=== PATIENT | male | born 1995 | race Caucasian/White ===

== ENCOUNTER 2022-01-21 15:43 | Outpatient (CLI) | payer BC, SELFPAY ==
[2022-01-21 17:06] LABS: Chloride* 103 mmol/L (96-114)
[2022-01-21 17:07] LABS: Albumin* 4.7 g/dL (3.3-5.0); Potassium* 4.3 mmol/L (3.6-5.1); Sodium* 137 mmol/L (135-149)
[2022-01-21 17:09] LABS: Carbon Dioxide* 25 mmol/L (20-32); Cholesterol* 160 mg/dL (90-199)
[2022-01-21 17:10] LABS: Alanine Aminotransferase* 25 U/L (4-50); Alkaline Phosphatase* 102 U/L (40-150); Aspartate Amino Transferase* 24 U/L (12-35); Bilirubin Total* 0.4 mg/dL (0.1-1.5); Blood Urea Nitrogen* 19 mg/dL (5-24); Calcium* 9.1 mg/dL (8.4-10.6); Estimated Glomerular Filt Rate 108 ml/min; Glucose* 87 mg/dL (60-115); Total Protein* 7.5 g/dL (6.0-8.3); Triglycerides* 168 mg/dL (40-149)
[2022-01-21 17:11] LABS: HDL Cholesterol* 46 mg/dL (>=40); LDL Cholesterol Calculated 80 mg/dL (<100)
== END 2022-01-21 15:44 | disposition home or self-care (01) ==
PROVIDERS: PCP Family Medicine; Visit Provider Family Medicine
DX: I10 Essential (primary) hypertension (principal); E66.9 Obesity, unspecified; Z13.6 Encounter for screening for cardiovascular disorders; Z79.899 Other long term (current) drug therapy
CPT/HCPCS: 80053; 80061

== ENCOUNTER 2022-10-01 06:44 | Outpatient (CLI) | payer BC, SELFPAY ==
--- NOTE | 2022-10-01 06:44 | W.ANESCHARGE ---
Anesthesia Charges Start Date/Time Anesthesia Start Date: 10/01/22 Anesthesia Start Time: 07:44 Stop Date/Time Anesthesia Stop Date: 10/01/22 Anesthesia Stop Time: 08:16
--- NOTE | 2022-10-01 06:44 | PM.ANHP ---
HPI - Pre-Anesthesia History of Present Illness Time Seen by Provider: 07:25 Date Seen: 10/01/22 Date of service: 10/01/22 Reason for visit: colonoscopy Narrative HPI: History of polyp. here for 5 year follow up Review of Systems Status of ROS Reports: 6 or more systems reviewed and unremarkable except as noted in History and below [facility] Medical History (Updated 01/21/22 @ 16:04 by Morena Billy MD) Irritable bowel syndrome with diarrhea ?K58.0 - Irritable bowel syndrome with diarrhea (ICD-10) Obesity (BMI 30.0-34.9) ?E66.9 - Obesity, unspecified (ICD-10) Hypertension with goal blood pressure less than 130/80 ?I10 - Essential (primary) hypertension (ICD-10) Surgical History (Updated 01/20/22 @ 09:29 by Lindsey Cash) History of colonoscopy (09/19/17) ?Z98.890 - Other specified postprocedural states (ICD-10) History of adenoidectomy ?Z90.89 - Acquired absence of other organs (ICD-10) Family History (Updated 01/20/22 @ 15:57 by Morena Billy MD) Father Bipolar disorder Paternal Grandmother Breast cancer, Onset Age: 30 Coronary artery disease Melanoma Maternal Grandmother Coronary artery disease Kidney disease Myocardial infarction, Onset Age: 60 Paternal Grandfather Hx of CABG, Onset Age: 60 Paternal Grandfather Hx of CABG, Onset Age: 60 Sister Migraine Social History (Updated 01/21/22 @ 16:03 by Morena Billy MD) Narrative: Engaged, Constuction worker, 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, nonsmoker, 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 Smoking Status: Never smoker Meds Home Medications and Allergies Home Medications Medication Instructions Recorded Confirmed Type hyoscyamine sulfate 0.125 mg tablet 0.125 mg PO PRN 01/21/22 01/21/22 History Allergies Allergy/AdvReac Type Severity Reaction Status Date / Time No Known Drug Allergies Allergy Verified 01/21/22 15:20 Exam Const Documenting provider has reviewed patient's vital signs: yes Common normals: no apparent distress, oriented x3, healthy appearing, alert and well nourished General appearance: cooperative and comfortable Orientation/consciousness: Yes awake HENMT Common normals: normocephalic Head and scalp: normocephalic Neck & C-Spine Common normals: full ROM Chest Chest: symmetrical chest wall rise Resp Common normals: normal respiratory effort, no retractions, no use of accessory muscles and clear to auscultation bilaterally Auscultation: clear to auscultation bilaterally Cardio Common normals: regular rate, regular rhythm, S1 normal heart sound, S2 normal heart sound and no murmurs Rate: regular rate Rhythm: regular rhythm Heart sounds: S1 normal and S2 normal Neuro Common normals: oriented x3 Sensorium/orientation: awake and alert Assessment and Plan Assessment and plan (1) Serrated adenoma of colon: Status: Acute Plan ok to proceed with sedation for colonoscopy
--- NOTE | 2022-10-01 08:18 | W.ANESCHARGE ---
Anesthesia Charges Start Date/Time Anesthesia Start Date: 10/01/22 Anesthesia Start Time: 07:44 Stop Date/Time Anesthesia Stop Date: 10/01/22 Anesthesia Stop Time: 08:16
== END 2022-10-01 06:45 | disposition home or self-care (01) ==
LOC: OP CLINIC 06:45
PROVIDERS: PCP Family Medicine; Visit Provider Internal Medicine
DX: Z12.11 Encounter for screening for malignant neoplasm of colon (principal); Z86.010 Personal history of colon polyps
CPT/HCPCS: 45378; 811; 812; J2704

== ENCOUNTER 2023-02-16 16:12 | Outpatient (CLI) | payer BC, SELFPAY | END 2023-02-16 16:13 | disposition home or self-care (01) | PROVIDERS: PCP Family Medicine; Visit Provider Family Medicine | DX: I10 Essential (primary) hypertension (principal); Z13.220 Encounter for screening for lipoid disorders | CPT/HCPCS: 80053; 80061 ==

== ENCOUNTER 2024-02-20 07:48 | Outpatient (CLI) | payer BC, SELFPAY | END 2024-02-20 07:49 | disposition home or self-care (01) | PROVIDERS: PCP Family Medicine; Referring Provider Family Medicine; Visit Provider Family Medicine | DX: I10 Essential (primary) hypertension (principal); R73.01 Impaired fasting glucose; E78.5 Hyperlipidemia, unspecified; Z13.29 Encounter for screening for other suspected endocrine disorder | CPT/HCPCS: 80053; 80061; 84443 ==

== ENCOUNTER 2024-08-05 17:49 | Emergency (ER) | payer BC, SELFPAY ==
--- OUTSIDE RECORDS SUMMARY | 2024-08-05 17:51 | XMS_ITS | Clinical Summary ---
Author Organization [facility] Address [address], [place] [address] Care Team Providers Care Channeler Insole Name Role Phone Unavailable Primary Care Provider Unavailabl e Source Comments You are receiving this document as you are listed as the primary care provider,follow-up provider, or the patient has been referred to you for consultation.This is in compliance with the Medicare and[facility] EHR Incentive Program,which states Providers who transition their patient to another setting of careor provider of care or refers their patient to another provider of care shouldprovide summary care record for each transition of care or referral. [facility] Allerg[facility] No known active allergies Medications lisinopril (ZESTRIL) 20 MG tablet Take 20 mg by mouth daily. Active omeprazole (PRILOSEC) 20 MG capsule Take 1 Cap by mouth daily. Take 1 hour before a meal. 30 Cap 11 8 Active hyoscyamine (LEVSIN/SL) 0.125 MG sublingual tabletIndications :Irritable bowel syndrome with both constipation and diarrhea Take 1-2 Tablets by mouth every 4 hours as needed. 40 Tablet 3 8 Active busPIRone (BUSPAR) 10 MG tabletIndications :Irritable bowel syndrome with both constipation and diarrhea Take 2 Tablets by mouth two times a day. 360 Tablet 3 0 Active dicyclomine (BENTYL) 10 MG capsule Take 1-2 Capsules by mouth 4 times daily as needed. 120 Capsule 3 0 Active Active Problems Problem Noted Date Diagnosed Date Irritable bowel syndrome wit h both constipation and diarrhea 10/25/2017 Adenomatous polyp of colon 09/22/2017 Overview (09/22/2017): Next colonoscopy 09/2022 with propofol Social History Tobacco Use Types Packs/Day Years Used Date Smoking Tobacco: Never Smokeless Tobacco: Never Alcohol Use Standard Drinks/Week Comments Yes 2 (1 standard drink = 0.6 oz pur e alcohol) Sex and Gender Information Value Date Recorded Sex Assigned at Not on file Legal Sex Male 12:17 PM CDT Gender Identity Not on file Sexual Orientation Not on file Last Filed Vital Signs Vital Sign Reading Time Taken Comments Blood Pressure 135/93 04/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 Pulse 94 04/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 Temperature 36.6 C (97.9 F) 09/19/2017 9:24 AM CDT Respiratory Rate 18 04/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 Oxygen Saturation 98% 09/19/2017 10:45 AM CDT Inhaled Oxygen Concentration - - Weight 142.4 kg (314 lb) 04/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 Height 203.2 cm (6' 8) 04/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 Body Mass Index 34.49 04/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 Plan of Treatment Health Maintenance Due Date Last Done Comments Hep C Screening (Preventive Services) 1997 HIV Screening (Preventive Services) 2013 Adult Preventive Visit 05/13/2015 DTaP/Tdap/Td Vaccine (1 - Tdap) 2016 HepB Vaccine (1) 2016 Colonoscopy 09/19/2022 09/19/2017 COVID-19 Vaccine (1 - 2023-2 5 season) 2023 Influenza Vaccine (Season Ended) 2024 Zoster/Shingles Vaccine (1 of 2) 05/13/2047 HPV Vaccine Aged Out No longer eligi ble based on patient's age to complete this topic HepA Vaccine Aged Out No longer eligi ble based on patient's age to complete this topic Hib Vaccine Aged Out No longer eligi ble based on patient's age to complete this topic IPV (Polio) Vaccine Aged Out No longe r eligible based on patient's age to complete this topic MCV4 Vaccine Aged Out No longer eligi ble based on patient's age to complete this topic Meningococcal B Vaccine Aged Out No l onger eligible based on patient's age to complete this topic Pneumococcal Vaccine Aged Out No long er eligible based on patient's age to complete this topic Procedures Procedure Name Priority Date/Time Associated Diagnosis Comments ENDOSCOPY, COLON, SCREENING/DIAGNOSTI C Routine 09/19/2017 9:59 AM CDT Chronic diarrhea from Last 3 Months or Most Recently Relevant to Health Maintenance Results * Endoscopy, colon, diagnostic (09/19/2017 9:59 AM CDT) Anatomical Region Laterality Modality Other 09/19/2017 9:59 AM CDT Narrative 09/19/2017 9:59 AM CDT Patient Name: Dorian Steen Procedure Date: 09/19/2017 9:59 AM Date of : 1995 Age: 22 Gender: Male Note Status: Finalized Attending MD: Shorty Crisostomo MD Procedure: Colonoscopy Indications: Chronic diarrhea Providers: Shorty Crisostomo MD, Robbie Villatoro RN Referring MD: Dorian Oropeza MD Medicines: Propofol per Anesthesia Complications: No immediate complications. Estimated blood loss: Minimal. Procedure: After I obtained informed consent, the scope was passed under direct vision. Throughout the procedure, the patient's blood pressure, pulse, and oxygen saturations were monitored continuously. The [id number] was introduced through the anus and advanced to the cecum, identified by appendiceal orifice and ileocecal valve. The colonoscopy was performed without difficulty. The patient tolerated the procedure well. The quality of the bowel preparation was good. Findings: The perianal and digital rectal examinations were normal. A 4 mm polyp was found in the hepatic flexure. The polyp was sessile. The polyp was removed with a cold biopsy forceps. Resection and retrieval were complete. Estimated blood loss was minimal. The colon (entire examined portion) appeared normal. Biopsies for histology were taken with a cold forceps from the right colon, left colon and rectum for evaluation of microscopic colitis. Estimated blood loss was minimal. Impression: - One 4 mm polyp at the hepatic flexure, removed with a cold biopsy forceps. Resected and retrieved. - The entire examined colon is normal. Biopsied. Recommendation: - Await pathology results. - Repeat colonoscopy in 5 years for surveillance based on pathology results. Procedure Code(s): --- Professional --- 00680, Colonoscopy, flexible; with biopsy, single or multiple Diagnosis Code(s): --- Professional --- D12.3, Benign neoplasm of transverse colon (hepatic flexure or splenic flexure) K52.9, Noninfective gastroenteritis and colitis, unspecified CPT copyright 2016 [employer]. All rights reserved. The codes documented in this report are preliminary and upon needle board repairer review may be revised to meet current compliance requirements. Shorty Crisostomo MD 09/19/2017 10:54:06 AM This document has been electronically signed. Number of Addenda: 0 Note Initiated On: 09/19/2017 9:59 AM Endoscopy Report Procedure Note Shorty Crisostomo MD - 09/19/2017 Patient Name: Dorian Steen Procedure Date: 09/19/2017 9:59 AM Date of : 1995 Age: 22 Gender: Male Note Status: Finalized Attending MD: Shorty Crisostomo MD Procedure: Colonoscopy Indications: Chronic diarrhea Providers: Shorty Crisostomo MD, Robbie Villatoro RN Referring MD: Dorian Oropeza MD Medicines: Propofol per Anesthesia Complications: No immediate complications. Estimated blood loss: Minimal. Procedure: After I obtained informed consent, the scope was passed under direct vision. Throughout the procedure, the patient's blood pressure, pulse, and oxygen saturations were monitored continuously. The [id number] was introduced through the anus and advanced to the cecum, identified by appendiceal orifice and ileocecal valve. The colonoscopy was performed without difficulty. The patient tolerated the procedure well. The quality of the bowel preparation was good. Findings: The perianal and digital rectal examinations were normal. A 4 mm polyp was found in the hepatic flexure. The polyp was sessile. The polyp was removed with a cold biopsy forceps. Resection and retrieval were complete. Estimated blood loss was minimal. The colon (entire examined portion) appeared normal. Biopsies for histology were taken with a cold forceps from the right colon, left colon and rectum for evaluation of microscopic colitis. Estimated blood loss was minimal. Impression: - One 4 mm polyp at the hepatic flexure, removed with a cold biopsy forceps. Resected and retrieved. - The entire examined colon is normal. Biopsied. Recommendation: - Await pathology results. - Repeat colonoscopy in 5 years for surveillance based on pathology results. Procedure Code(s): --- Professional --- 10459, Colonoscopy, flexible; with biopsy, single or multiple Diagnosis Code(s): --- Professional --- D12.3, Benign neoplasm of transverse colon (hepatic flexure or splenic flexure) K52.9, Noninfective gastroenteritis and colitis, unspecified CPT copyright 2016 [employer]. All rights reserved. The codes documented in this report are preliminary and upon needle board repairer review may be revised to meet current compliance requirements. Shorty Crisostomo MD 09/19/2017 10:54:06 AM This document has been electronically signed. Number of Addenda: 0 Note Initiated On: 09/19/2017 9:59 AM Endoscopy Report Dorian Oropeza MD ET GI PROCEDURE ORDERABLES F inal Result from Last 3 Months or Most Recently Relevant to Health Maintenance Insurance [facility] [place] [address]
--- OUTSIDE RECORDS SUMMARY | 2024-08-05 17:51 | XMS_ITS | Clinical Summary ---
Author Organization [facility] Address [address] [place] [id number] Care Team Providers Care Pick Pulling Machine Tender Name Role Phone Morena Billy MD Primary Care Provider + Allergies No known active allergies Medications fluticasone, 50 mcg per actuation, nasal (FLONASE) 50 mcg/actuation nasal spray Inhale 1 Sterling into both nostrils once daily. 1 Bottle 0 06/21/2011 Active Active Problems No known active problems Family History Medical History Relation Name Comments No Known Problems Father Positive s moking. No Known Problems Sister 1 No Known Problems Sister 2 Relation Name Status Comments Father Alive Sister 1 Alive Sister 2 Alive Social History Tobacco Use Types Packs/Day Years Used Date Smoking Tobacco: Passive Smo ke Exposure - Never Smoker Smokeless Tobacco: Never Tobacco Cessation:Counseling Given: Yes Comments:His father smokes. 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 Gender Identity Not on file Sexual Orientation Not on file Obstetrics History Last Filed Vital Signs Vital Sign Reading Time Taken Comments Blood Pressure 146/88 07/14/2020 8:18 PM CDT Pulse 100 07/14/2020 8:26 PM CDT Temperature 36.8 C (98.3 F) 07/14/2020 8:15 PM CDT Respiratory Rate 14 07/14/2020 8:15 PM CDT Oxygen Saturation 99% 07/14/2020 8:26 PM CDT Inhaled Oxygen Concentration - - Weight 137.4 kg (303 lb) 07/14/2020 8:16 PM CDT Height 203.2 cm (6' 8) 07/14/2020 8:16 PM CDT Body Mass Index 33.29 07/14/2020 8:16 PM CDT Plan of Treatment Health Maintenance Due Date Last Done Comments Tdap 2008 Depression screening for age 12+ 2009 HIV for age 15-65 2012 BMI (ht and wt on same day) for age 18+ 05/13/2015 Hepatitis C screening for ag e 18-79 05/13/2015 Hepatitis B series for 19+ ( 1 of 3 - 19+ 3-dose series) 2016 Tetanus booster 2017 COVID-19 vaccine series (2023- season) 2023 Influenza Vaccine (Season Ended) 2024 Pneumococcal series for age 6-49 Aged Out No longer eligible based on patient's age to complete this topic Insurance [facility] Care Teams Pick Pulling Machine Tender Relationship Specialty Start Date End Date Morena Billy MD [address] [place] [address] PCP - General Family Practice 05/27/17
[2024-08-05 18:11] VITALS: BP 146/90; PULSE 96; RESP 18; TEMP 36.6; O2SAT 97; BMI 37.2
--- NOTE | 2024-08-05 18:34 | ED_ITS ---
HPI - Wound/Laceration General Chief Complaint: Laceration/Wound Stated Complaint: Left pointer finger laceration Time Seen by Provider: 08/05/24 17:50 History of Present Illness HPI narrative: This 29-year-old male comes in with a laceration to the tip of his left index finger. He was using a grinding wheel prior to arrival and the small wheal on and of a Dremel like tool accidentally cut into the tip of his left index finger. He did cleanse the wound with soapy water. He thinks that his tetanus is up-to-date and it was checked here and in fact that is the case. Related Data Previous Rx's ?Medication ?Instructions ?Recorded dicyclomine 10 mg capsule 10 - 20 mg (1 - 2 x 10 mg) P O BID 02/28/24 PRN abdominal pain #90 caps lisinopril 20 mg tablet 20 mg PO DAILY #90 tabs 02/11 10/04 Allergies Allergy/AdvReac Type Severity Reaction Status Date / Time No Known Drug Allergies Allergy Verified 08/05/24 18:11 Review of Systems 2 Status of ROS: Reports: 10 or more systems reviewed and unremarkable except as noted in History and below Narrative: Constitutional: No fevers, no weight gain or loss. Eyes: No discharge. No vision changes. HENT: No congestion, no sore throat, no ear pain. Cardiovascular: No chest pain, no palpitations. Respiratory: No shortness of breath, no wheezes, no cough. Gastrointestinal: No abdominal pain, no vomiting, no diarrhea. Genitourinary: No dysuria, no hematuria. Musculoskeletal: Normal range of motion. Skin: No rashes, no pruritis. Neurological: No dizziness, weakness, sensory change, speech change. Endo/Heme/Allergies: No bruising or bleeding. No polydipsia. Pysch: no suicidality, no anxiety, no insomnia. All other systems reviewed and are negative. [facility] Medical History (Updated 08/05/24 @ 18:37 by Ahmet Cisneros MD) Moderate hearing loss (~2022) ?H91.90 - Unspecified hearing loss, unspecified ear (ICD-10) Tinnitus, bilateral ?H93.13 - Tinnitus, bilateral (ICD-10) Hypertension, essential ?I10 - Essential (primary) hypertension (ICD-10) Serrated adenoma of colon (~09/2017) ?D12.6 - Benign neoplasm of colon, unspecified (ICD-10) Irritable bowel syndrome with diarrhea ?K58.0 - Irritable bowel syndrome with diarrhea (ICD-10) Obesity (BMI 30.0-34.9) ?E66.9 - Obesity, unspecified (ICD-10) Surgical History (Updated 01/20/22 @ 09:29 by CharityIvett Cash) History of colonoscopy (09/19/17) ?Z98.890 - Other specified postprocedural states (ICD-10) History of adenoidectomy ?Z90.89 - Acquired absence of other organs (ICD-10) Family History (Updated 01/20/22 @ 15:57 by Morena Billy MD) Father Bipolar disorder Paternal Grandmother Breast cancer, Onset Age: 30 Coronary artery disease Melanoma Maternal Grandmother Coronary artery disease Kidney disease Myocardial infarction, Onset Age: 60 Paternal Grandfather Hx of CABG, Onset Age: 60 Paternal Grandfather Hx of CABG, Onset Age: 60 Sister Migraine Social History (Updated 02/28/24 @ 10:40 by Morena Billy MD) Narrative: , sales agent insurance, 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 nonsmoker, 2 christophe/ week What is your current living situation?: I presently have a place to live Problems where you live: no known problems In the past 12 months, utilities in danger of being shut off: no In past 12 months, lack of transportation kept you from medical appts, meetings, work, or getting things needed for daily living: no In the past 12 mos, have been you worried that your food would run out before you had money to buy more?: never true In the past 12 mos, the food you bought just didn't last and you didn't have money to buy more?: never true Smoking Status: Never smoker How often does anyone, including family, friends and others, physically hurt you : never How often does anyone, including family, friends and others, insult or talk down to you: never How often does anyone, including family, friends and others, threaten you with harm: never How often does anyone, including family, friends and others, scream or curse at you: never Exam Narrative: Exam Narrative: Constitutional: Well-developed, well-nourished, no acute distress. HEENT: Normocephalic, atraumatic. Neck: Normal range of motion. Nontender. Supple. Heart: Intact distal pulses. Lungs: No chest discomfort. No wheezes, rhonchi, or rales. Abdomen: Nontender. Back: Normal range of motion. Extremities: Normal range of motion. Left index finger has a 1 cm laceration over the tip of the finger and barely involving part of the nail. Skin: Intact. No rash. Warm. No erythema or pallor. Neurologic: No altered sensation. No weakness. Alert and oriented. Psychiatric: No suicidality. No anxiety or depression. No insomnia. Nursing notes and vitals signs are reviewed. Const: Vital Signs, click to edit/add: Vital Signs - 24 hr 08/05/24 18:11 Temperature 98 F Pulse Rate [Pulse Oximeter] 96 Respiratory Rate 18 Blood Pressure [Ri ght Upper Arm] 146/90 H Pulse Oximetry 97 Oxygen Delivery Me thod Room Air Course Vital Signs Vital signs: Initial Vital Signs Temperature 98 F 08/05/24 18:11 Temperature Source Temporal Artery Scan 08/05/24 18:11 Pulse Rate 96 08/05/24 18:11 Respiratory Rate 18 08/05/24 18:11 Blood Pressure 146/90 H 08/05/24 18:11 Blood Pressure Mean 108 H 08/05/24 18:11 Blood Pressure Position Sitting 08/05/24 18:11 Pulse Oximetry 97 08/05/24 18:11 Oxygen Delivery Method Room Air 08/05/24 18:11 Vital Signs Temperature 98 F 08/05/24 18:11 Pulse Rate 96 08/05/24 18:11 Respiratory Rate 18 08/05/24 18:11 Blood Pressure 146/90 H 08/05/24 18:11 Pulse Oximetry 97 08/05/24 18:11 Oxygen Delivery Method Room Air 08/05/24 18:11 Temperature 98 F 08/05/24 18:11 Pulse Rate 96 08/05/24 18:11 Respiratory Rate 18 08/05/24 18:11 Blood Pressure 146/90 H 08/05/24 18:11 Pulse Oximetry 97 08/05/24 18:11 Oxygen Delivery Method Room Air 08/05/24 18:11 MDM - Wound/Laceration MDM Narrative Medical decision making narrative: This patient has a laceration of the tip of his finger as described above. I did discuss wound repair options with the patient and indicated that the wound edges are nicely approximated and the wound is sufficiently clean. Therefore the patient did elect to have Dermabond applied. This was done with excellent results. Two bandages were placed over the wound and instructions regarding wound care were given. Discharge Plan Discharge Clinical Impression: Laceration Patient Disposition: Home, Self-Care Condition: Stable Additional Instructions: Keep wound clean and dry. Use [id number] medicines as needed and directed. Follow up with MD or return if worsening. Prescriptions: No Action lisinopril 20 mg tablet 20 mg PO DAILY Qty: 90 3RF dicyclomine 10 mg capsule 10 - 20 mg PO BID PRN (Reason: abdominal pain) Qty: 90 3RF Follow Up/Referrals: Morena Billy MD [Primary Care Provider, Family Practice] Stand Alone Forms: [employer] Info Instructions
== END 2024-08-05 18:59 | disposition home or self-care (01) ==
LOC: ED 18:45
PROVIDERS: Emergency Provider Emergency Medicine Emergency Medical Services; PCP Family Medicine
DX: S61.311A Laceration without foreign body of left index finger with damage to nail, initial encounter (principal)
CPT/HCPCS: 12001; 99282; 99284

== ENCOUNTER 2025-02-27 07:33 | Outpatient (CLI) | payer BC, SELFPAY | END 2025-02-27 07:34 | disposition home or self-care (01) | LOC: NFLDREF 03-04 08:15 | PROVIDERS: PCP Family Medicine; Referring Provider Family Medicine; Visit Provider Family Medicine | DX: E78.5 Hyperlipidemia, unspecified (principal); I10 Essential (primary) hypertension | CPT/HCPCS: 80053; 80061 ==